=== PATIENT | female | born 1975 | race Caucasian/White ===

== ENCOUNTER → 2016-11-14 17:05 | Outpatient (CLI) | payer MEDICAID | END | disposition home or self-care (01) | LOC: D.MAMMO 16:15 | DX: Z12.31 Encounter for screening mammogram for malignant neoplasm of breast (principal) ==

== ENCOUNTER 2017-07-08 18:56 | Emergency (ER) | payer BC | END 2017-07-08 20:11 | disposition left against medical advice (07) | LOC: D.ER 18:56 | DX: R21 Rash and other nonspecific skin eruption (principal) ==

== ENCOUNTER 2017-12-15 05:30 | Emergency (ER) | payer MEDICAID ==
[~2017-12-15] VITALS: Ht 175.3 cm; Wt 104.5 kg
[2017-12-15 05:33] VITALS: BP 187/98; Ht 175.3 cm; Wt 104.5 kg
[2017-12-15] MEDS ORDERED: MACROBID100 MG PO (06:02)
[2017-12-15] MEDS ORDERED: PHENAZOPYRIDIN200 MG PO (06:02)
[2017-12-15 06:19] LABS: APPEARANCE CLOUDY (CLEAR); BILIRUBIN NEGATIVE (NEGATIVE); COLOR STRAW (YELLOW); GLUCOSE NEGATIVE (NEGATIVE); KETONE NEGATIVE (NEGATIVE); NITRITE NEGATIVE (NEGATIVE); PROTEIN NEGATIVE (NEGATIVE); SPECIFIC GRAVITY 1.015 (1.005-1.020); UROBILINOGEN NORMAL (NORMAL)
[2017-12-15 06:20] LABS: AMORPHOUS SEDIMENT <1+ /lpf (NONE SEEN); BACTERIA MANY /hpf (NONE SEEN); MUCUS <1+ /lpf (NONE SEEN)
== END 2017-12-15 06:58 | disposition home or self-care (01) ==
LOC: D.ER 05:30
PROVIDERS: Emergency Medicine
DX: N39.0 Urinary tract infection, site not specified (principal); I10 Essential (primary) hypertension; E11.9 Type 2 diabetes mellitus without complications